=== PATIENT | female | born 1985 | race Caucasian/White ===

== ENCOUNTER 2019-07-07 11:25 | Inpatient (IN) | payer OTHER ==
[2019-07-07 11:54] VITALS: BMI 16.9
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
[2019-07-07] MEDS ORDERED: BISMUTH SUBSALICYLATE 262 MG/15 ML BTL PO PRN (13:42)
[2019-07-07] MEDS ORDERED: cloNIDine HCL 0.1 MG TABLET PO PRN (13:42)
[2019-07-07] MEDS ORDERED: MAG HYDROX/AL HYDROX/SIMETH 30 ML UNIT-DOSE CUP PO PRN (13:42)
[2019-07-07] MEDS ORDERED: MAGNESIUM HYDROX 2400MG/30ML ORAL SUSPENSION 30 ML CUP PO PRN (13:42)
[2019-07-07] MEDS ORDERED: NICOTINE POLACRILEX 4 MG GUM BUC PRN (13:42)
[2019-07-07] MEDS ORDERED: METHOCARBAMOL 500 MG TABLET PO PRN (13:42)
[2019-07-07] MEDS ORDERED: MENTHOL/PHENOL 1 EACH UD MM PRN (13:42)
[2019-07-07] MEDS ORDERED: ACETAMINOPHEN 325 MG TABLET (FP) PO PRN ×2 (13:42)
[2019-07-07] MEDS ORDERED: MAGNESIUM CITRATE 300 ML BOTTLE PO PRN (13:42)
--- NOTE | 2019-07-07 13:57 | PN ---
Teaching Attending Note Name of Resident: Negrito Levy ATTENDING PHYSICIAN STATEMENT I saw and evaluated the patient. I reviewed the resident's note and discussed the case with the resident. I agree with the resident's findings and plan as documented. SUBJECTIVE: Agree with subjective findings of the resident. OBJECTIVE: Agree with objective findings of the resident. ASSESSMENT AND PLAN: Opioid and Alcohol Dependence Agree with moderate librium protocol and methadone protocol for detox.
[2019-07-07] MEDS ORDERED: FLUOCINOLONE ACETONIDE TP SCH (14:00)
[2019-07-07] MEDS ORDERED: CLOBETASOL PROPIONATE TP SCH (14:00)
[2019-07-07] MEDS ORDERED: METHADONE HCL 10 MG TABLET (FOR DETOX USE ONLY) PO ONE (14:45)
[2019-07-07] MEDS: hydrOXYzine PAMOATE 25 MG CAPSULE (FP) PO PRN (16:00)
[2019-07-07] MEDS: TRIAMCINOLONE ACET 0.1% OINT 15 GM TUBE TP SCH (16:01)
[2019-07-07] MEDS ORDERED: AMMONIUM LACTATE 12% LOTION 225 GM BOTTLE TP PRN (17:44)
[2019-07-07 17:53] LABS: HEMATOCRIT 36.3 % (32.4-45.2); HEMOGLOBIN 11.8 GM/dL (10.7-15.3); MCH 29.8 pg (25.7-33.7); MCHC 32.5 g/dl (32.0-36.0); MEAN CELL VOLUME 91.7 fl (80-96); MEAN PLT VOLUME 7.6 fl (7.5-11.1); PLATELET COUNT 419 K/MM3 (134-434); RBC 3.96 M/mm3 (3.60-5.2); RDW 14.7 % (11.6-15.6)
[2019-07-07 18:09] LABS: ALBUMIN 3.5 g/dl (3.4-5.0); BILIRUBIN,TOTAL 0.6 mg/dL (0.2-1); BLOOD UREA NITROGEN 7.5 mg/dL (7-18); CALCIUM 9.1 mg/dL (8.5-10.1); CREATININE 0.9 mg/dL (0.55-1.3); POTASSIUM 4.2 mmol/L (3.5-5.1); TOT PROT 6.7 g/dl (6.4-8.2)
[2019-07-07] MEDS: chlordiazePOXIDE HCL 10 MG CAPSULE PO PRN (18:13)
[2019-07-07] MEDS: COLLOIDAL OATMEAL 1 BAR EACH TP PRN (18:13)
[2019-07-07] MEDS: MELATONIN 5 MG TABLETS PO PRN (22:05)
[2019-07-07] MEDS: THIAMINE HCL 100 MG TABLET (FP) PO SCH (22:05)
[2019-07-07] MEDS: FLUOCINONIDE 0.05% TOPICAL SOLUTION (60 ML BOTTLE) TP SCH (22:07)
[2019-07-07] MEDS: chlordiazePOXIDE HCL 25 MG CAPSULE PO SCH (22:07)
[2019-07-08] MEDS: chlordiazePOXIDE HCL 25 MG CAPSULE PO SCH ×3 (05:30→21:27)
[2019-07-08] MEDS ORDERED: METHADONE HCL 10 MG TABLET (FOR DETOX USE ONLY) ONE (09:22)
[2019-07-08] MEDS ORDERED: METHADONE HCL 5 MG TABLET (FOR DETOX USE ONLY) ONE (09:23)
[2019-07-08] MEDS: TRIAMCINOLONE ACET 0.1% OINT 15 GM TUBE TP SCH (09:45)
[2019-07-08] MEDS: FLUOCINONIDE 0.05% TOPICAL SOLUTION (60 ML BOTTLE) TP SCH (09:46)
[2019-07-08] MEDS: hydrOXYzine PAMOATE 25 MG CAPSULE (FP) PO PRN (09:46)
[2019-07-08] MEDS: PRENATAL VITAMINS W/ FOLIC ACID TABLET (FP) PO SCH (09:46)
[2019-07-08] MEDS ORDERED: METHADONE (DETOX) 20 MG, METHADONE (DETOX) 5 MG PO ONE (10:00)
[2019-07-08] MEDS: IBUPROFEN 400 MG TABLET (FP) PO PRN (10:36)
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
[2019-07-08] MEDS: SELENIUM SULFIDE 2.5% LOTION 4 OZ. TP SCH ×2 (12:47→12:50)
[2019-07-08] MEDS: MINERAL OIL/PETROLAT/WATER TOPICAL CREAM 113 GM JAR TP SCH (12:47)
--- NOTE | 2019-07-08 16:36 | PN ---
S CIWA - CIWA Score Nausea/Vomitin-No Nausea/No Vomiting Muscle Tremors: 4-Moderate,w/Arms Extend Anxiety: 5 Agitation: 3 Paroxysmal Sweats: No Perspiration Orientation: 0-Oriented Tacttile Disturbances: 3-Moderate Itch/Numb/Burn (extensive body psoriatic rash- -itches) Auditory Disturbances: 0-None Visual Disturbances: 0-None Headache: 0-None Present CIWA-Ar Total Score: 15 BHS COWS - Scale Resting Pulse: 0= [place] 80 or Below Sweatin= Chills/Flushing Restless Observation: 0= Sits Still Pupil Size: 0= Normal to Room Light Bone or Joint Aches: 1= Mild Discomfort Runny Nose/ Eye Tearin= None GI Upset > 30mins: 0= None Tremor Observation of Outstretched Hands: 2= Slight Tremor Visible Yawning Observation: 0= None Anxiety or Irritability: 2=Irritable/Anxious Goose Flesh Skin: 0=Smooth Skin COWS Score: 6 S Progress Note (SOAP) Subjective: Pt is a 33 y/o female admitted for opioid and alcohol detox. Pt c/o anxiety, tremor, irritability. Very concerned about her skin rash(Psoriasis)from head to toe and campa when talking about it. Pt is on Floucinonide TP solutionand and Triamcinolol cream TP. Objective: Alert o x 3 Head:Normocephalic, hair with dry scaly patches Skin:extensive thick, red and bumpy patches with silvery scales on lower extremities. 07/08/19 16:36 Vital Signs - 24 hr 07/07/19 07/07/19 07/08/19 17:49 21:35 00:30 Temperature 96.7 F L 97.4 F L Pulse Rate 70 70 Respiratory 18 16 18 Rate Blood Pressure 103/62 117/70 07/08/19 07/08/19 07/08/19 03:30 06:08 09:12 Temperature 97.5 F L 97.1 F L Pulse Rate 61 51 L Respiratory 18 16 18 Rate Blood Pressure 93/61 100/60 07/08/19 13:08 Temperature 96.8 F L Pulse Rate 62 Respiratory 18 Rate Blood Pressure 99/64 Laboratory Tests 07/07/19 07/07/19 07/07/19 14:15 14:15 14:15 WBC 6.0 RBC 3.96 Hgb 11.8 Hct 36.3 MCV 91.7 MCH 29.8 MCHC 32.5 RDW 14.7 Plt Count 419 MPV 7.6 Sodium 142 Potassium 4.2 Chloride 110 H Carbon Dioxide 25 Anion Gap 7 L BUN 7.5 Creatinine 0.9 Est GFR (CKD-EPI)AfAm 96.01 Est GFR (CKD-EPI)NonAf 82.84 Random Glucose 115 H Calcium 9.1 Total Bilirubin 0.6 AST 52 H ALT 70 H Alkaline Phosphatase 60 Total Protein 6.7 Albumin 3.5 RPR Titer Nonreactive Assessment: 07/08/19 16:40 withdrawal sx Hx chronic Psoriasis Plan: continue detox meth/ana taper selsun lotion 2.5% daily as directed eucerine cream daily aveeno soap daily
[2019-07-08] MEDS: THIAMINE HCL 100 MG TABLET (FP) PO SCH (21:27)
[2019-07-08] MEDS: QUEtiapine FUMARATE 50 MG TABLET PO SCH (21:28)
[2019-07-09] MEDS: chlordiazePOXIDE 5 MG CAPSULE PO SCH ×3 (05:25→22:16)
--- NOTE | 2019-07-09 09:39 | EKG ---
Test Reason : Blood Pressure : / mmHG Vent. Rate : 071 BPM Atrial Rate : 071 BPM P-R Int : 128 ms QRS Dur : 096 ms QT Int : 414 ms P-R-T Axes : 054 070 033 degrees QTc Int : 449 ms NORMAL SINUS RHYTHM POSSIBLE LEFT ATRIAL ENLARGEMENT NONSPECIFIC ST AND T WAVE ABNORMALITY ABNORMAL ECG NO PREVIOUS ECGS AVAILABLE Confirmed by CATHI BARKER MD ([id number]) on 07/09/2019 9:39:11 AM Referred By: Confirmed By:CATHI BARKER MD
[2019-07-09] MEDS ORDERED: METHADONE HCL 10 MG TABLET (FOR DETOX USE ONLY) PO ONE (10:00)
--- NOTE | 2019-07-09 10:03 | PN ---
S CIWA - CIWA Score Nausea/Vomitin-No Nausea/No Vomiting Muscle Tremors: 2 Anxiety: 3 Agitation: 4-Moderately Restless Paroxysmal Sweats: 1-Minimal Palms Moist Orientation: 0-Oriented Tacttile Disturbances: 0-None Auditory Disturbances: 0-None Visual Disturbances: 0-None Headache: 0-None Present CIWA-Ar Total Score: 10 S COWS - Scale Resting Pulse: 1= [place] 81-100 Sweatin= Chills/Flushing Restless Observation: 0= Sits Still Pupil Size: 0= Normal to Room Light Bone or Joint Aches: 1= Mild Discomfort Runny Nose/ Eye Tearin= Nasal Congestion GI Upset > 30mins: 1= Stomach Cramp Tremor Observation of Outstretched Hands: 1= Tremor [place], Not Seen Yawning Observation: 0= None Anxiety or Irritability: 1=Feels Anxious/Irritable Goose Flesh Skin: 0=Smooth Skin COWS Score: 7 S Progress Note (SOAP) Subjective: 33 years old female first patient [facility] admission was admitted on 07/07/19 for alcohol and opiate withdrawal sx management doing well with librium and methadone detox regimen resting on bed comfortably Objective: 07/09/19 10:04 Vital Signs Temperature 97.0 F L 07/09/19 09:43 Pulse Rate 84 07/09/19 09:43 Respiratory Rate 18 07/09/19 09:43 Blood Pressure 130/78 07/09/19 09:43 O2 Sat by Pulse Oximetry (%) Laboratory Last Values WBC 6.0 K/mm3 (4.0-10.0) 07/07/19 14:15 RBC 3.96 M/mm3 (3.60-5.2) 07/07/19 14:15 Hgb 11.8 GM/dL (10.7-15.3) 07/07/19 14:15 Hct 36.3 % (32.4-45.2) 07/07/19 14:15 MCV 91.7 fl (80-96) 07/07/19 14:15 MCH 29.8 pg (25.7-33.7) 07/07/19 14:15 MCHC 32.5 g/dl (32.0-36.0) 07/07/19 14:15 RDW 14.7 % (11.6-15.6) 07/07/19 14:15 Plt Count 419 K/MM3 (134-434) 07/07/19 14:15 MPV 7.6 fl (7.5-11.1) 07/07/19 14:15 Sodium 142 mmol/L (136-145) 07/07/19 14:15 Potassium 4.2 mmol/L (3.5-5.1) 07/07/19 14:15 Chloride 110 mmol/L (98-107) H 07/07/19 14:15 Carbon Dioxide 25 mmol/L (21-32) 07/07/19 14:15 Anion Gap 7 MMOL/L (8-16) L 07/07/19 14:15 BUN 7.5 mg/dL (7-18) 07/07/19 14:15 Creatinine 0.9 mg/dL (0.55-1.3) 07/07/19 14:15 Est GFR (CKD-EPI)AfAm 96.01 07/07/19 14:15 Est GFR (CKD-EPI)NonAf 82.84 07/07/19 14:15 Random Glucose 115 mg/dL (74-106) H 07/07/19 14:15 Calcium 9.1 mg/dL (8.5-10.1) 07/07/19 14:15 Total Bilirubin 0.6 mg/dL (0.2-1) 07/07/19 14:15 AST 52 U/L (15-37) H 07/07/19 14:15 ALT 70 U/L (13-61) H 07/07/19 14:15 Alkaline Phosphatase 60 U/L (45-117) 07/07/19 14:15 Total Protein 6.7 g/dl (6.4-8.2) 07/07/19 14:15 Albumin 3.5 g/dl (3.4-5.0) 07/07/19 14:15 RPR Titer Nonreactive (NONREACTIVE) 07/07/19 14:15 lab noted Assessment: 07/09/19 10:05 alcohol and opiate withdrawal sx alert speech clearly denies dizziness breath ease and even Plan: continue librum and methadone detox regimen
[2019-07-09] MEDS: MINERAL OIL/PETROLAT/WATER TOPICAL CREAM 113 GM JAR TP SCH (10:27)
[2019-07-09] MEDS: PRENATAL VITAMINS W/ FOLIC ACID TABLET (FP) PO SCH (10:27)
[2019-07-09] MEDS: TRIAMCINOLONE ACET 0.1% OINT 15 GM TUBE TP SCH (10:28)
[2019-07-09] MEDS: SELENIUM SULFIDE 2.5% LOTION 4 OZ. TP SCH (10:28)
[2019-07-09] MEDS: FLUOCINONIDE 0.05% TOPICAL SOLUTION (60 ML BOTTLE) TP SCH (10:29)
[2019-07-09] MEDS: IBUPROFEN 400 MG TABLET (FP) PO PRN ×2 (10:42→22:19)
[2019-07-09] MEDS: chlordiazePOXIDE HCL 10 MG CAPSULE PO PRN (18:06)
[2019-07-09] MEDS: QUEtiapine FUMARATE 50 MG TABLET PO SCH (22:16)
[2019-07-09] MEDS: THIAMINE HCL 100 MG TABLET (FP) PO SCH (22:16)
[2019-07-09] MEDS: MELATONIN 5 MG TABLETS PO PRN (22:16)
[2019-07-10] MEDS ORDERED: chlordiazePOXIDE HCL 10 MG CAPSULE PO PRN
[2019-07-10] MEDS: chlordiazePOXIDE HCL 10 MG CAPSULE PO SCH ×3 (06:08→21:48)
[2019-07-10] MEDS ORDERED: METHADONE HCL 10 MG TABLET (FOR DETOX USE ONLY) ONE (08:20)
[2019-07-10] MEDS ORDERED: METHADONE HCL 5 MG TABLET (FOR DETOX USE ONLY) ONE (08:20)
--- NOTE | 2019-07-10 09:20 | PN ---
[facility] CIWA - CIWA Score Nausea/Vomitin-No Nausea/No Vomiting Muscle Tremors: 2 Anxiety: 2 Agitation: 2 Paroxysmal Sweats: No Perspiration Orientation: 0-Oriented Tacttile Disturbances: 0-None Auditory Disturbances: 0-None Visual Disturbances: 0-None Headache: 0-None Present CIWA-Ar Total Score: 6 BHS COWS - Scale Resting Pulse: 0= [place] 80 or Below Sweatin= Chills/Flushing Restless Observation: 0= Sits Still Pupil Size: 0= Normal to Room Light Bone or Joint Aches: 1= Mild Discomfort Runny Nose/ Eye Tearin= None GI Upset > 30mins: 1= Stomach Cramp Tremor Observation of Outstretched Hands: 2= Slight Tremor Visible Yawning Observation: 0= None Anxiety or Irritability: 1=Feels Anxious/Irritable Goose Flesh Skin: 0=Smooth Skin COWS Score: 6 S Progress Note (SOAP) Subjective: doing well with librium and methadone detox regimen resting on bed comfortably hesitate to discuss aftercare with staff Objective: 07/10/19 09:23 Vital Signs Temperature 97.9 F 07/10/19 09:18 Pulse Rate 74 07/10/19 09:18 Respiratory Rate 18 07/10/19 09:18 Blood Pressure 106/69 07/10/19 09:18 O2 Sat by Pulse Oximetry (%) Laboratory Last Values WBC 6.0 K/mm3 (4.0-10.0) 07/07/19 14:15 RBC 3.96 M/mm3 (3.60-5.2) 07/07/19 14:15 Hgb 11.8 GM/dL (10.7-15.3) 07/07/19 14:15 Hct 36.3 % (32.4-45.2) 07/07/19 14:15 MCV 91.7 fl (80-96) 07/07/19 14:15 MCH 29.8 pg (25.7-33.7) 07/07/19 14:15 MCHC 32.5 g/dl (32.0-36.0) 07/07/19 14:15 RDW 14.7 % (11.6-15.6) 07/07/19 14:15 Plt Count 419 K/MM3 (134-434) 07/07/19 14:15 MPV 7.6 fl (7.5-11.1) 07/07/19 14:15 Sodium 142 mmol/L (136-145) 07/07/19 14:15 Potassium 4.2 mmol/L (3.5-5.1) 07/07/19 14:15 Chloride 110 mmol/L (98-107) H 07/07/19 14:15 Carbon Dioxide 25 mmol/L (21-32) 07/07/19 14:15 Anion Gap 7 MMOL/L (8-16) L 07/07/19 14:15 BUN 7.5 mg/dL (7-18) 07/07/19 14:15 Creatinine 0.9 mg/dL (0.55-1.3) 07/07/19 14:15 Est GFR (CKD-EPI)AfAm 96.01 07/07/19 14:15 Est GFR (CKD-EPI)NonAf 82.84 07/07/19 14:15 Random Glucose 115 mg/dL (74-106) H 07/07/19 14:15 Calcium 9.1 mg/dL (8.5-10.1) 07/07/19 14:15 Total Bilirubin 0.6 mg/dL (0.2-1) 07/07/19 14:15 AST 52 U/L (15-37) H 07/07/19 14:15 ALT 70 U/L (13-61) H 07/07/19 14:15 Alkaline Phosphatase 60 U/L (45-117) 07/07/19 14:15 Total Protein 6.7 g/dl (6.4-8.2) 07/07/19 14:15 Albumin 3.5 g/dl (3.4-5.0) 07/07/19 14:15 RPR Titer Nonreactive (NONREACTIVE) 07/07/19 14:15 lab noted discuss alcohol related liver enzyme elevation Assessment: 07/10/19 09:23 alcohol and opiate withdrawal sx alert ambulating from bed to bathroom steady gait skin warm moist able to shower yesterday and will do today Plan: continue librum and opiate detox regimen
[2019-07-10] MEDS: TRIAMCINOLONE ACET 0.1% OINT 15 GM TUBE TP SCH (09:34)
[2019-07-10] MEDS: SELENIUM SULFIDE 2.5% LOTION 4 OZ. TP SCH (09:34)
[2019-07-10] MEDS: MINERAL OIL/PETROLAT/WATER TOPICAL CREAM 113 GM JAR TP SCH (09:34)
[2019-07-10] MEDS: PRENATAL VITAMINS W/ FOLIC ACID TABLET (FP) PO SCH (09:35)
[2019-07-10] MEDS ORDERED: METHADONE (DETOX) 10 MG, METHADONE (DETOX) 5 MG PO ONE (10:00)
[2019-07-10] MEDS: FLUOCINONIDE 0.05% TOPICAL SOLUTION (60 ML BOTTLE) TP SCH (11:09)
[2019-07-10] MEDS: COLLOIDAL OATMEAL 1 BAR EACH TP PRN (14:14)
[2019-07-10] MEDS: hydrOXYzine PAMOATE 25 MG CAPSULE (FP) PO PRN (16:51)
[2019-07-10] MEDS: IBUPROFEN 400 MG TABLET (FP) PO PRN (19:25)
[2019-07-10] MEDS: THIAMINE HCL 100 MG TABLET (FP) PO SCH (21:48)
[2019-07-10] MEDS: MELATONIN 5 MG TABLETS PO PRN (21:48)
[2019-07-10] MEDS: QUEtiapine FUMARATE 50 MG TABLET PO SCH (21:48)
[2019-07-11] MEDS ORDERED: chlordiazePOXIDE HCL 10 MG CAPSULE PO ONE (05:00)
[2019-07-11] MEDS: IBUPROFEN 400 MG TABLET (FP) PO PRN ×3 (05:49→22:57)
[2019-07-11] MEDS: PRENATAL VITAMINS W/ FOLIC ACID TABLET (FP) PO SCH (09:59)
[2019-07-11] MEDS: SELENIUM SULFIDE 2.5% LOTION 4 OZ. TP SCH (10:00)
[2019-07-11] MEDS: MINERAL OIL/PETROLAT/WATER TOPICAL CREAM 113 GM JAR TP SCH (10:00)
[2019-07-11] MEDS ORDERED: METHADONE HCL 10 MG TABLET (FOR DETOX USE ONLY) PO ONE (10:00)
[2019-07-11] MEDS: TRIAMCINOLONE ACET 0.1% OINT 15 GM TUBE TP SCH (10:02)
[2019-07-11] MEDS: FLUOCINONIDE 0.05% TOPICAL SOLUTION (60 ML BOTTLE) TP SCH (10:02)
--- NOTE | 2019-07-11 10:21 | PN ---
[facility] CIWA - CIWA Score Nausea/Vomitin-No Nausea/No Vomiting Muscle Tremors: 1-None Visible, but [place] Anxiety: 1-Mildly Anxious Agitation: 0-Normal Activity Paroxysmal Sweats: 1-Minimal Palms Moist Orientation: 0-Oriented Tacttile Disturbances: 0-None Auditory Disturbances: 0-None Visual Disturbances: 0-None Headache: 0-None Present CIWA-Ar Total Score: 3 S COWS - Scale Resting Pulse: 0= [place] 80 or Below Sweatin= Chills/Flushing Restless Observation: 0= Sits Still Pupil Size: 0= Normal to Room Light Bone or Joint Aches: 0= None Runny Nose/ Eye Tearin= None GI Upset > 30mins: 0= None Tremor Observation of Outstretched Hands: 1= Tremor [place], Not Seen Yawning Observation: 1= 1-2x During Session Anxiety or Irritability: 0= None Goose Flesh Skin: 0=Smooth Skin COWS Score: 3 S Progress Note (SOAP) Subjective: doing well with librum and methadone detox regimen resting on bed comfortably tolerate food and fluid well sleep better at night discuss network operations lead in the community to maintain sobriety Objective: 07/11/19 10:22 Vital Signs Temperature 98.0 F 07/11/19 09:08 Pulse Rate 62 07/11/19 09:08 Respiratory Rate 18 07/11/19 09:08 Blood Pressure 98/53 L 07/11/19 09:08 O2 Sat by Pulse Oximetry (%) Laboratory Last Values WBC 6.0 K/mm3 (4.0-10.0) 07/07/19 14:15 RBC 3.96 M/mm3 (3.60-5.2) 07/07/19 14:15 Hgb 11.8 GM/dL (10.7-15.3) 07/07/19 14:15 Hct 36.3 % (32.4-45.2) 07/07/19 14:15 MCV 91.7 fl (80-96) 07/07/19 14:15 MCH 29.8 pg (25.7-33.7) 07/07/19 14:15 MCHC 32.5 g/dl (32.0-36.0) 07/07/19 14:15 RDW 14.7 % (11.6-15.6) 07/07/19 14:15 Plt Count 419 K/MM3 (134-434) 07/07/19 14:15 MPV 7.6 fl (7.5-11.1) 07/07/19 14:15 Sodium 142 mmol/L (136-145) 07/07/19 14:15 Potassium 4.2 mmol/L (3.5-5.1) 07/07/19 14:15 Chloride 110 mmol/L (98-107) H 07/07/19 14:15 Carbon Dioxide 25 mmol/L (21-32) 07/07/19 14:15 Anion Gap 7 MMOL/L (8-16) L 07/07/19 14:15 BUN 7.5 mg/dL (7-18) 07/07/19 14:15 Creatinine 0.9 mg/dL (0.55-1.3) 07/07/19 14:15 Est GFR (CKD-EPI)AfAm 96.01 07/07/19 14:15 Est GFR (CKD-EPI)NonAf 82.84 07/07/19 14:15 Random Glucose 115 mg/dL (74-106) H 07/07/19 14:15 Calcium 9.1 mg/dL (8.5-10.1) 07/07/19 14:15 Total Bilirubin 0.6 mg/dL (0.2-1) 07/07/19 14:15 AST 52 U/L (15-37) H 07/07/19 14:15 ALT 70 U/L (13-61) H 07/07/19 14:15 Alkaline Phosphatase 60 U/L (45-117) 07/07/19 14:15 Total Protein 6.7 g/dl (6.4-8.2) 07/07/19 14:15 Albumin 3.5 g/dl (3.4-5.0) 07/07/19 14:15 RPR Titer Nonreactive (NONREACTIVE) 07/07/19 14:15 lab noted Assessment: 07/11/19 10:22 alcohol and opiate withdrawal sx alert oriented x 3 speech clearly no nausea no vomiting Plan: continue libirum and methadone detox regimen
[2019-07-11] MEDS: hydrOXYzine PAMOATE 25 MG CAPSULE (FP) PO PRN ×2 (15:18→22:06)
[2019-07-11] MEDS: QUEtiapine FUMARATE 50 MG TABLET PO SCH (22:06)
[2019-07-11] MEDS: THIAMINE HCL 100 MG TABLET (FP) PO SCH (22:06)
[2019-07-12] MEDS ORDERED: METHADONE HCL 5 MG TABLET (FOR DETOX USE ONLY) PO ONE (06:00)
[2019-07-12 09:18] VITALS: BP 116/65; PULSE 71; TEMP 98.6
[2019-07-12] MEDS: MINERAL OIL/PETROLAT/WATER TOPICAL CREAM 113 GM JAR TP SCH (10:48)
[2019-07-12] MEDS: PRENATAL VITAMINS W/ FOLIC ACID TABLET (FP) PO SCH (10:48)
[2019-07-12] MEDS: TRIAMCINOLONE ACET 0.1% OINT 15 GM TUBE TP SCH (10:48)
[2019-07-12] MEDS: FLUOCINONIDE 0.05% TOPICAL SOLUTION (60 ML BOTTLE) TP SCH (10:48)
[2019-07-12] MEDS: SELENIUM SULFIDE 2.5% LOTION 4 OZ. TP SCH (10:49)
[2019-07-12] MEDS: hydrOXYzine PAMOATE 25 MG CAPSULE (FP) PO PRN (10:50)
[2019-07-12] MEDS: IBUPROFEN 400 MG TABLET (FP) PO PRN (11:20)
--- NOTE | 2019-07-12 15:40 | DS ---
[facility] Detox Discharge Summary Admission Date: 07/07/19 Discharge Date: 07/12/19 - History Present History: Alcohol Dependence, Opioid Dependence Additional Comments: 33 years old female admitted on 07/07/19 for alcohol and opiate withdrawal sx managemetn doing well wtih libbrium and methadone detox regimen no complication throughout the detox stay seen by psychiatrist begin seroquel 50 mg po hs tolerate well - Physical Exam Results Vital Signs: Vital Signs Temperature 98.6 F 07/12/19 09:18 Pulse Rate 71 07/12/19 09:18 Respiratory Rate 18 07/12/19 09:18 Blood Pressure 116/65 07/12/19 09:18 O2 Sat by Pulse Oximetry (%) Pertinent Admission Physical Exam Findings: alcohol and opiate withdrawal sx Laboratory Last Values WBC 6.0 K/mm3 (4.0-10.0) 07/07/19 14:15 RBC 3.96 M/mm3 (3.60-5.2) 07/07/19 14:15 Hgb 11.8 GM/dL (10.7-15.3) 07/07/19 14:15 Hct 36.3 % (32.4-45.2) 07/07/19 14:15 MCV 91.7 fl (80-96) 07/07/19 14:15 MCH 29.8 pg (25.7-33.7) 07/07/19 14:15 MCHC 32.5 g/dl (32.0-36.0) 07/07/19 14:15 RDW 14.7 % (11.6-15.6) 07/07/19 14:15 Plt Count 419 K/MM3 (134-434) 07/07/19 14:15 MPV 7.6 fl (7.5-11.1) 07/07/19 14:15 Sodium 142 mmol/L (136-145) 07/07/19 14:15 Potassium 4.2 mmol/L (3.5-5.1) 07/07/19 14:15 Chloride 110 mmol/L (98-107) H 07/07/19 14:15 Carbon Dioxide 25 mmol/L (21-32) 07/07/19 14:15 Anion Gap 7 MMOL/L (8-16) L 07/07/19 14:15 BUN 7.5 mg/dL (7-18) 07/07/19 14:15 Creatinine 0.9 mg/dL (0.55-1.3) 07/07/19 14:15 Est GFR (CKD-EPI)AfAm 96.01 07/07/19 14:15 Est GFR (CKD-EPI)NonAf 82.84 07/07/19 14:15 Random Glucose 115 mg/dL (74-106) H 07/07/19 14:15 Calcium 9.1 mg/dL (8.5-10.1) 07/07/19 14:15 Total Bilirubin 0.6 mg/dL (0.2-1) 07/07/19 14:15 AST 52 U/L (15-37) H 07/07/19 14:15 ALT 70 U/L (13-61) H 07/07/19 14:15 Alkaline Phosphatase 60 U/L (45-117) 07/07/19 14:15 Total Protein 6.7 g/dl (6.4-8.2) 07/07/19 14:15 Albumin 3.5 g/dl (3.4-5.0) 07/07/19 14:15 RPR Titer Nonreactive (NONREACTIVE) 07/07/19 14:15 TB (QFT) Incubation (.) 07/07/19 14:15 TB Test (QFT) Nil 0.02 IU/mL (.) 07/07/19 14:15 TB Test (QFT) Mitogen >10.00 IU/mL (.) 07/07/19 14:15 TB Test (QFT) Antigen 0.02 IU/mL (.) 07/07/19 14:15 TB Test (QFT) Negative (Negative) 07/07/19 14:15 TB Positive Criteria (.) 07/07/19 14:15 lab noted - Treatment Hospital Course: Detox Protocol Followed, Detoxed Safely, Responded well, Discharged Condition Good, Rehab Referral Accepted Patient has Accepted a Rehab Referral to: [facility] - Medication Discharge Medications: Ambulatory Orders Clobetasol Propionate [Cormax] 50 ml TP DAILY 07/07/19 Fluocinolone Acetonide [Jozeb-Uxytjab-Tq] 118.28 ml TP DAILY 07/07/19 Triamcinolone 0.1% Ointment [Aristocort 0.1% Ointment -] 1 applic TP DAILY 07/07 - Diagnosis (1) Alcohol use disorder Status: Acute (2) Nicotine dependence Status: Acute Qualifiers: Nicotine product type: cigarettes Substance use status: in withdrawal Qualified Code(s): F17.213 - Nicotine dependence, cigarettes, with withdrawal (3) Opioid use disorder Status: Acute (4) Substance induced mood disorder Status: Suspected - AMA Did Patient Leave Against Medical Advice: No CIWA Score - CIWA Score Nausea/Vomitin-No Nausea/No Vomiting Muscle Tremors: 1-None Visible, but Humble Anxiety: 0-No Anxiety, at Ease Agitation: 0-Normal Activity Paroxysmal Sweats: No Perspiration Orientation: 0-Oriented Tacttile Disturbances: 0-None Auditory Disturbances: 0-None Visual Disturbances: 0-None Headache: 0-None Present CIWA-Ar Total Score: 1 COWS (PN) - Opiate Withdrawal Resting Pulse: 0= [place] 80 or Below Sweatin= No chills or Flushing Restless Observation: 0= Sits Still Pupil Size: 0= Normal to Room Light Bone or Joint Aches: 0= None Runny Nose/ Eye Tearin= None GI Upset > 30mins: 0= None Tremor Observation of Outstretched Hands: 1= Tremor Humble, Not Seen Yawning Observation: 0= None Anxiety or Irritability: 0= None Goose Flesh Skin: 0=Smooth Skin COWS Score: 1
== END 2019-07-12 13:10 | disposition other institution (70) | DRG 773 ==
LOC: YASAS 11:25 → Y3N 14:12
PROVIDERS: ADMIT Surgery; ATTEND Surgery
PROC: HZ2ZZZZ Detoxification Services for Substance Abuse Treatment (ICD-10-PCS; principal; 2019-07-07)
DX: F10.230 Alcohol dependence with withdrawal, uncomplicated (principal); F11.23 Opioid dependence with withdrawal; F14.20 Cocaine dependence, uncomplicated; F12.20 Cannabis dependence, uncomplicated; F17.213 Nicotine dependence, cigarettes, with withdrawal; F19.24 Other psychoactive substance dependence with psychoactive substance-induced mood disorder; L40.9 Psoriasis, unspecified; G47.00 Insomnia, unspecified; B18.2 Chronic viral hepatitis C; Z86.59 Personal history of other mental and behavioral disorders; Z91.19 Patient's noncompliance with other medical treatment and regimen
CPT/HCPCS: 36415; 80053; 85027; 86480; 86593; 93005; 93010

== ENCOUNTER 2019-07-12 13:26 | Inpatient (IN) | payer OTHER ==
[2019-07-12] MEDS ORDERED: MAGNESIUM CITRATE 300 ML BOTTLE PO PRN (17:53)
[2019-07-12] MEDS ORDERED: MAGNESIUM HYDROX 2400MG/30ML ORAL SUSPENSION 30 ML CUP PO PRN (17:53)
[2019-07-12] MEDS ORDERED: guaiFENesin 200 MG/10 ML 10 ML UNIT-DOSE CUPS PO PRN (17:53)
[2019-07-12] MEDS ORDERED: ACETAMINOPHEN 325 MG TABLET (FP) PO PRN (17:53)
[2019-07-12] MEDS ORDERED: LOPERAMIDE HCL 2 MG CAPSULE PO PRN (17:53)
[2019-07-12] MEDS ORDERED: MENTHOL/PHENOL 1 EACH UD MM PRN (17:53)
[2019-07-12] MEDS ORDERED: MAG HYDROX/AL HYDROX/SIMETH 30 ML UNIT-DOSE CUP PO PRN (17:53)
[2019-07-12] MEDS ORDERED: P-EPHED 60MG/TRIPROLIDI 2.5MG TABLET PO PRN (17:53)
[2019-07-12] MEDS: hydrOXYzine PAMOATE 25 MG CAPSULE (FP) PO PRN (19:03)
[2019-07-12] MEDS: MELATONIN 5 MG TABLETS PO PRN (21:28)
[2019-07-12] MEDS: THIAMINE HCL 100 MG TABLET (FP) PO SCH (21:28)
[2019-07-13] MEDS: hydrOXYzine PAMOATE 25 MG CAPSULE (FP) PO PRN ×3 (07:55→20:14)
[2019-07-13] MEDS ORDERED: CLOBETASOL PROPIONATE TP SCH (10:00)
[2019-07-13] MEDS: TRIAMCINOLONE ACET 0.1% OINT 15 GM TUBE TP SCH (10:05)
[2019-07-13] MEDS: PRENATAL VITAMINS W/ FOLIC ACID TABLET (FP) PO SCH (10:05)
[2019-07-13] MEDS: FLUOCINONIDE 0.05% TOPICAL SOLUTION (60 ML BOTTLE) TP SCH (10:05)
[2019-07-13] MEDS ORDERED: PNEUMOC 13-VAL CONJ-DIP CRM/PF 0.5 ML DISP.SYRIN IM ONE (10:56)
[2019-07-13] MEDS ORDERED: PNEUMOCOCCAL 23 VACCINE 0.5 ML VIAL IM ONE (12:00)
[2019-07-13] MEDS: SELENIUM SULFIDE 2.5% LOTION 4 OZ. TP SCH (12:18)
[2019-07-13] MEDS: COLLOIDAL OATMEAL 1 BAR EACH TP PRN (12:19)
[2019-07-13] MEDS: IBUPROFEN 400 MG TABLET (FP) PO PRN ×2 (12:24→20:11)
[2019-07-13] MEDS ORDERED: BENZOCAINE 20 % GEL TUBE MM PRN (14:25)
[2019-07-13] MEDS: THIAMINE HCL 100 MG TABLET (FP) PO SCH (21:24)
[2019-07-13] MEDS: MELATONIN 5 MG TABLETS PO PRN (21:24)
[2019-07-14] MEDS: hydrOXYzine PAMOATE 25 MG CAPSULE (FP) PO PRN (07:32)
[2019-07-14] MEDS ORDERED: ASPIRIN COATED 81 MG TABLET.EC ONE (08:48)
[2019-07-14] MEDS ORDERED: PT OWN MED DRAWER 7, Y5N ONE (08:51)
[2019-07-14] MEDS: PRENATAL VITAMINS W/ FOLIC ACID TABLET (FP) PO SCH (09:42)
[2019-07-14] MEDS: ASPIRIN COATED 81 MG TABLET.EC PO SCH (09:42)
[2019-07-14] MEDS: AMMONIUM LACTATE 12% LOTION 225 GM BOTTLE TP PRN (09:43)
[2019-07-14] MEDS: TRIAMCINOLONE ACET 0.1% OINT 15 GM TUBE TP SCH (09:43)
[2019-07-14] MEDS: SELENIUM SULFIDE 2.5% LOTION 4 OZ. TP SCH (09:43)
[2019-07-14] MEDS: FLUOCINONIDE 0.05% TOPICAL SOLUTION (60 ML BOTTLE) TP SCH (09:43)
[2019-07-14] MEDS: IBUPROFEN 400 MG TABLET (FP) PO PRN (11:21)
[2019-07-14] MEDS ORDERED: BUPRENORPHINE/NALOXONE 2 MG/0.5 MG FILM PACKET SL ONE ×2 (11:32→18:00)
--- NOTE | 2019-07-14 11:54 | PN ---
[facility] COWS - Scale Resting Pulse: 0= [place] 80 or Below Sweatin= Chills/Flushing Restless Observation: 1= Difficult to Sit Still Pupil Size: 1= Pupils >than Normal Bone or Joint Aches: 2= Severe Diffuse Aches Runny Nose/ Eye Tearin= None GI Upset > 30mins: 1= Stomach Cramp Tremor Observation of Outstretched Hands: 2= Slight Tremor Visible Yawning Observation: 0= None Anxiety or Irritability: 2=Irritable/Anxious Goose Flesh Skin: 0=Smooth Skin COWS Score: 10 BHS Progress Note (SOAP) Subjective: Patient seen for withdrawal symptoms. Patient has long standing hx of Heroin/ Cocaine IVDA and ETOH dependence. Patient reports using 1 bundle of heroin daily. Completed detox 07/12/19 and now requesting suboxone. Patient denies hx of suboxone/MTD maintenance. ROS + stomach cramps, anxiety, restlessness, sweating and chills PE: alert and oriented x 3, thin skin warm, + facial moisture, + goose flesh pupils mildly dilated, +perrla, eoms intact bl neck supple, no jvd ext no edema, + tremors, full rom anxious and restless + Objective: 07/14/19 11:54 PE: alert and oriented x 3, thin skin warm, + facial moisture, + goose flesh pupils mildly dilated, +perrla, eoms intact bl neck supple, no jvd ext no edema, + tremors, full rom anxious and restless Istop negative Assessment: 07/14/19 11:54 suboxone mat opiod use disorder Plan: will start suboxone 2mg now, then repeat at 6pm increase to 4mg bid tomorrow patient connected to program [facility] for aftercare encourage oral fluids conitnue to monitor clinically
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
[2019-07-14] MEDS: QUEtiapine FUMARATE 50 MG TABLET PO SCH (21:16)
[2019-07-14] MEDS: THIAMINE HCL 100 MG TABLET (FP) PO SCH (21:16)
[2019-07-14] MEDS: hydrOXYzine PAMOATE 50 MG CAPSULE (FP) PO PRN (22:50)
[2019-07-15] MEDS: IBUPROFEN 400 MG TABLET (FP) PO PRN ×2 (01:04→11:15)
[2019-07-15] MEDS: hydrOXYzine PAMOATE 50 MG CAPSULE (FP) PO PRN ×4 (05:00→23:42)
[2019-07-15] MEDS: ASPIRIN COATED 81 MG TABLET.EC PO SCH (09:02)
[2019-07-15] MEDS: SERTRALINE HCL 50 MG TABLET (FP) PO SCH (09:02)
[2019-07-15] MEDS: BUPRENORPHINE/NALOXONE 4 MG/1 MG FILM PACKET SL SCH ×2 (09:03→21:25)
[2019-07-15] MEDS: NICOTINE 14 MG/24 HOURS TOPICAL PATCH TD SCH (09:03)
[2019-07-15] MEDS: PRENATAL VITAMINS W/ FOLIC ACID TABLET (FP) PO SCH (09:03)
[2019-07-15] MEDS: SELENIUM SULFIDE 2.5% LOTION 4 OZ. TP SCH (09:05)
[2019-07-15] MEDS: FLUOCINONIDE 0.05% TOPICAL SOLUTION (60 ML BOTTLE) TP SCH (09:06)
[2019-07-15] MEDS: TRIAMCINOLONE ACET 0.1% OINT 15 GM TUBE TP SCH (13:04)
[2019-07-15] MEDS: QUEtiapine FUMARATE 50 MG TABLET PO SCH (21:25)
[2019-07-15] MEDS: THIAMINE HCL 100 MG TABLET (FP) PO SCH (21:25)
[2019-07-16] MEDS: PRENATAL VITAMINS W/ FOLIC ACID TABLET (FP) PO SCH (09:19)
[2019-07-16] MEDS: SERTRALINE HCL 50 MG TABLET (FP) PO SCH (09:19)
[2019-07-16] MEDS: FLUOCINONIDE 0.05% TOPICAL SOLUTION (60 ML BOTTLE) TP SCH (09:19)
[2019-07-16] MEDS: BUPRENORPHINE/NALOXONE 4 MG/1 MG FILM PACKET SL SCH ×2 (09:19→21:08)
[2019-07-16] MEDS: ASPIRIN COATED 81 MG TABLET.EC PO SCH (09:19)
[2019-07-16] MEDS: TRIAMCINOLONE ACET 0.1% OINT 15 GM TUBE TP SCH (09:19)
[2019-07-16] MEDS: SELENIUM SULFIDE 2.5% LOTION 4 OZ. TP SCH (09:19)
[2019-07-16] MEDS: hydrOXYzine PAMOATE 50 MG CAPSULE (FP) PO PRN ×2 (09:21→18:14)
[2019-07-16] MEDS: NICOTINE 14 MG/24 HOURS TOPICAL PATCH TD SCH (09:42)
[2019-07-16] MEDS: NICOTINE POLACRILEX 2 MG GUM BUC PRN (13:50)
[2019-07-16] MEDS: IBUPROFEN 400 MG TABLET (FP) PO PRN (13:50)
[2019-07-16] MEDS: QUEtiapine FUMARATE 50 MG TABLET PO SCH (21:08)
[2019-07-16] MEDS: THIAMINE HCL 100 MG TABLET (FP) PO SCH (21:08)
[2019-07-17] MEDS: hydrOXYzine PAMOATE 50 MG CAPSULE (FP) PO PRN ×4 (00:31→21:06)
[2019-07-17] MEDS: SERTRALINE HCL 50 MG TABLET (FP) PO SCH (09:39)
[2019-07-17] MEDS: NICOTINE 14 MG/24 HOURS TOPICAL PATCH TD SCH (09:39)
[2019-07-17] MEDS: ASPIRIN COATED 81 MG TABLET.EC PO SCH (09:39)
[2019-07-17] MEDS: PRENATAL VITAMINS W/ FOLIC ACID TABLET (FP) PO SCH (09:39)
[2019-07-17] MEDS: TRIAMCINOLONE ACET 0.1% OINT 15 GM TUBE TP SCH ×2 (09:43→21:03)
[2019-07-17] MEDS: FLUOCINONIDE 0.05% TOPICAL SOLUTION (60 ML BOTTLE) TP SCH ×3 (09:44→21:05)
[2019-07-17] MEDS: BUPRENORPHINE HCL/NALOXONE 12 MG-3 MG SL FILM PACKET SL SCH (10:17)
[2019-07-17] MEDS: SELENIUM SULFIDE 2.5% LOTION 4 OZ. TP SCH (10:49)
--- NOTE | 2019-07-17 11:16 | PN ---
[facility] COWS - Scale Resting Pulse: 0= [place] 80 or Below Sweatin= Chills/Flushing Restless Observation: 0= Sits Still Pupil Size: 0= Normal to Room Light Bone or Joint Aches: 2= Severe Diffuse Aches Runny Nose/ Eye Tearin= None GI Upset > 30mins: 1= Stomach Cramp Tremor Observation of Outstretched Hands: 1= Tremor [place], Not Seen Yawning Observation: 0= None Anxiety or Irritability: 2=Irritable/Anxious Goose Flesh Skin: 0=Smooth Skin COWS Score: 7 BHS Progress Note (SOAP) Subjective: Patient states feeling somewhat better but still has opiod cravings, anxiety, night sweats and body aches. Objective: 07/17/19 11:13 PE alert and oriented x 3 skin + diffuse, psoriatic rash on arms and torso +perrla, eoms intact bl car s1s2 resp cta bl gi nt, nd ext full rom, mild tremors felt Assessment: 07/17/19 11:14 psoriasis suboxone mat opiod use disorder Plan: will increase suboxone to 12mg sl daily change fluicinolone cream to bid psych consult for anxiety continue supportive measures and group meetings monitor clinically
[2019-07-17] MEDS: THIAMINE HCL 100 MG TABLET (FP) PO SCH (21:03)
[2019-07-17] MEDS: QUEtiapine FUMARATE 50 MG TABLET PO SCH (21:05)
[2019-07-17] MEDS: MELATONIN 5 MG TABLETS PO PRN (21:06)
[2019-07-17] MEDS: IBUPROFEN 400 MG TABLET (FP) PO PRN (22:54)
[2019-07-18] MEDS: PRENATAL VITAMINS W/ FOLIC ACID TABLET (FP) PO SCH (10:13)
[2019-07-18] MEDS: BUPRENORPHINE HCL/NALOXONE 12 MG-3 MG SL FILM PACKET SL SCH (10:14)
[2019-07-18] MEDS: NICOTINE 14 MG/24 HOURS TOPICAL PATCH TD SCH (10:14)
[2019-07-18] MEDS: SELENIUM SULFIDE 2.5% LOTION 4 OZ. TP SCH (10:14)
[2019-07-18] MEDS: hydrOXYzine PAMOATE 50 MG CAPSULE (FP) PO PRN (10:14)
[2019-07-18] MEDS: SERTRALINE HCL 50 MG TABLET (FP) PO SCH (10:14)
[2019-07-18] MEDS: ASPIRIN COATED 81 MG TABLET.EC PO SCH (10:14)
--- NOTE | 2019-07-18 10:14 | PN ---
Psychiatric Progress Note Vital Signs: Vital Signs Period Temp Pulse Resp BP Sys/Morales Pulse Ox Last 24 Hr 98 F 71 18-18 122/63 Date of Session: 07/18/19 Chief Complaint:: " I can't sleep and i still have anxiety." HPI: Patient admitted to [facility] for alcohol, marijuana, cocaine, and opiate dependence. Patient currently c/o insomnia and anxiety. ROS: Patient is coherent, alert + Oriented x3. Current Medications: Active Medications Generic Name Dose Route Start Last Admin Trade Name Freq PRN Reason Stop Dose Admin Acetaminophen 650 mg 07/12/19 17:53 Tylenol - PO Q4H PRN FEVER Al Hydroxide/Mg Hydroxide 30 ml 07/12/19 17:53 Mylanta Oral Suspension - PO Q6H PRN DYSPEPSIA Aspirin 81 mg 07/14/19 10:00 07/17/19 09:39 Ecotrin - PO 81 mg DAILY KEESHA Administration Benzocaine 1 applic 07/13/19 14:25 07/15/19 01:04 Anbesol - MM 1 applic Q6H PRN Administration FOR TOOTHACHE Buprenorphine/Naloxone 1 each 07/17/19 10:00 07/17/19 10:17 Suboxone 12 Mg-3 Mg Sl Film SL 07/24/19 09:59 1 each DAILY KEESHA Administration Clonidine 0.1 mg 07/12/19 17:54 Catapres - PO Q4H PRN ANXIETY Colloidal Oatmeal 1 applic 07/13/19 11:25 07/13/19 12:19 Aveeno Soap - TP 1 bar DAILY PRN Administration HYGEINE Eucalyptus/Menthol/Phenol/Sorbitol 1 each 07/12/19 17:53 Cepastat Lozenge - MM Q4H PRN SORE THROAT Fluocinonide 1 applic 07/17/19 10:00 07/17/19 21:05 Lidex 0.05% Solution - TP 1 applic BID KEESHA Administration Guaifenesin 10 ml 07/12/19 17:53 Robitussin - PO Q6H PRN COUGH Hydroxyzine Pamoate 50 mg 07/14/19 16:50 07/17/19 21:06 Vistaril - PO 50 mg Q6H PRN Administration ANXIETY Ibuprofen 400 mg 07/12/19 17:53 07/17/19 22:54 Motrin - PO 400 mg Q6H PRN Administration Pain Level 4-6 Lactic Acid 1 applic 07/12/19 17:54 07/14/19 09:43 Lac-Hydrin 12 TP 1 applic BID PRN Administration DRY SKIN Loperamide HCl 4 mg 07/12/19 17:53 Imodium - PO Q6H PRN DIARRHEA Magnesium Citrate 300 ml 07/12/19 17:53 Citroma - PO Q48H PRN CONSTIPATION Magnesium Hydroxide 30 ml 07/12/19 17:53 07/14/19 11:57 Milk Of Magnesia - PO 30 ml DAILY PRN Administration CONSTIPATION Melatonin 5 mg 07/12/19 22:00 07/17/19 21:06 Melatonin PO 5 mg HS PRN Administration INSOMNIA Nicotine 14 mg 07/15/19 10:00 07/17/19 09:39 Nicoderm Patch - TD Not Given DAILY KEESHA Nicotine Polacrilex 2 mg 07/15/19 08:12 07/16/19 13:50 Nicorette Gum - BUC 2 mg Q2H PRN Administration NICOTINE REPLACEMENT RX Multivit/Folic Acid/Iron 1 tab 07/13/19 10:00 07/17/19 09:39 Vitamins (Sjr) - PO 1 tab DAILY KEESHA Administration Pseudoephedrine/Triprolidine 1 combo 07/12/19 17:53 Actifed - PO TID PRN NASAL CONGESTION Quetiapine Fumarate 50 mg 07/14/19 22:00 07/17/19 21:05 Seroquel - PO 50 mg HS KEESHA Administration Selenium Sulfide 1 applic 07/13/19 11:15 07/17/19 10:49 Selsun 2.5% Lotion - TP 07/20/19 11:09 1 applic DAILY KEESHA Administration Sertraline HCl 50 mg 07/15/19 10:00 07/17/19 09:39 Zoloft - PO 50 mg DAILY KEESHA Administration Thiamine HCl 100 mg 07/12/19 22:00 07/17/19 21:03 Vitamin B1 - PO 100 mg HS KEESHA Administration Triamcinolone Acetonide 1 applic 07/17/19 22:00 07/17/19 21:03 Aristocort 0.1% Ointment - TP 1 applic BID KEESHA Administration Medication(s) Change(s): Yes. Lab tests reviewed: Yes Provider note:: Patient reports worsening anxiety and difficulty sleeping. Medications reviewed. Patient is prescribed vistaril 50mg q4h + Clonidine 0.1mg q4h for anxiety and seroquel 50mg HS for insomnia. Patient has yet to accept clonidine 0.1mg. Patient encouraged to accept clonidine as it is ordered for anxiety. Will d/c seroquel 50mg and will order seroquel 100mg HS for insomnia. Patient educated on the importance of utilizing her coping skills to help manage her anxiety. Patient satisfied and receptive to feedback. Total face to face time:: 25 Mental Status Exam - Mental Status Exam Alert and Oriented to: Time, Place, Person Cognitive Function: Good Patient Appearance: Well Groomed Mood: Anxious Affect: Mood Congruent Patient Behavior: Cooperative Speech Pattern: Appropriate Voice Loudness: Normal Thought Process: Goal Oriented Thought Disorder: Not Present Hallucinations: Denies Suicidal Ideation: Denies Homicidal Ideation: Denies Insight/Judgement: Poor Sleep: Poorly Appetite: Fair Muscle strength/Tone: Normal Gait/Station: Normal Psychiatric Treatment Plan - Problem List (1) Substance-induced sleep disorder Current Visit: Yes (2) Alcohol use disorder Current Visit: Yes (3) Nicotine dependence Current Visit: Yes Qualifiers: Nicotine product type: cigarettes Substance use status: in withdrawal Qualified Code(s): F17.213 - Nicotine dependence, cigarettes, with withdrawal (4) Opioid use disorder Current Visit: Yes (5) Cannabis dependence Current Visit: Yes (6) Cocaine use disorder Current Visit: Yes (7) History of depression Current Visit: Yes (8) Substance induced mood disorder Current Visit: Yes (9) Anxiety disorder Current Visit: Yes
[2019-07-18] MEDS: TRIAMCINOLONE ACET 0.1% OINT 15 GM TUBE TP SCH ×2 (10:15→21:32)
[2019-07-18] MEDS: FLUOCINONIDE 0.05% TOPICAL SOLUTION (60 ML BOTTLE) TP SCH ×2 (10:15→21:32)
[2019-07-18] MEDS: cloNIDine HCL 0.1 MG TABLET PO PRN ×2 (13:15→21:56)
[2019-07-18] MEDS: NICOTINE POLACRILEX 2 MG GUM BUC PRN (15:01)
[2019-07-18] MEDS: THIAMINE HCL 100 MG TABLET (FP) PO SCH (21:31)
[2019-07-18] MEDS: QUEtiapine FUMARATE 100 MG TABLET (FP) PO SCH (21:32)
[2019-07-19] MEDS: hydrOXYzine PAMOATE 50 MG CAPSULE (FP) PO PRN ×2 (06:18→18:05)
[2019-07-19] MEDS: PRENATAL VITAMINS W/ FOLIC ACID TABLET (FP) PO SCH (10:22)
[2019-07-19] MEDS: ASPIRIN COATED 81 MG TABLET.EC PO SCH (10:22)
[2019-07-19] MEDS: SERTRALINE HCL 50 MG TABLET (FP) PO SCH (10:22)
[2019-07-19] MEDS: BUPRENORPHINE HCL/NALOXONE 12 MG-3 MG SL FILM PACKET SL SCH (10:22)
[2019-07-19] MEDS: SELENIUM SULFIDE 2.5% LOTION 4 OZ. TP SCH (10:23)
[2019-07-19] MEDS: NICOTINE 14 MG/24 HOURS TOPICAL PATCH TD SCH (10:23)
[2019-07-19] MEDS ORDERED: PT OWN MED DRAWER 7, Y5N ONE (10:26)
[2019-07-19] MEDS: FLUOCINONIDE 0.05% TOPICAL SOLUTION (60 ML BOTTLE) TP SCH (10:27)
[2019-07-19] MEDS: TRIAMCINOLONE ACET 0.1% OINT 15 GM TUBE TP SCH (10:27)
[2019-07-19] MEDS: cloNIDine HCL 0.1 MG TABLET PO PRN (12:49)
[2019-07-19] MEDS: FLUOCINONIDE 0.05% CREAM (15 GM TUBE) TP SCH ×2 (18:04→21:19)
[2019-07-19] MEDS: NICOTINE POLACRILEX 2 MG GUM BUC PRN (18:05)
[2019-07-19] MEDS: QUEtiapine FUMARATE 100 MG TABLET (FP) PO SCH (21:19)
[2019-07-19] MEDS: THIAMINE HCL 100 MG TABLET (FP) PO SCH (21:19)
--- NOTE | 2019-07-20 10:05 | PN ---
[facility] Progress Note (SOAP) Subjective: Rash on body Objective: General: No apparent distress Lungs: clear Heart: s1 s2 audible abd: soft, non-tender, non-distended, +BS Skin: small discreet raised, red, scaly lesions scattered over trunk and extremities. 07/20/19 10:02 Assessment: Gtt psoriasis 07/20/19 10:05 Plan: triamcinolone ordered for entire body, (80 grams).
[2019-07-20] MEDS: SERTRALINE HCL 50 MG TABLET (FP) PO SCH (10:27)
[2019-07-20] MEDS: BUPRENORPHINE HCL/NALOXONE 12 MG-3 MG SL FILM PACKET SL SCH (10:27)
[2019-07-20] MEDS: ASPIRIN COATED 81 MG TABLET.EC PO SCH (10:27)
[2019-07-20] MEDS: PRENATAL VITAMINS W/ FOLIC ACID TABLET (FP) PO SCH (10:27)
[2019-07-20] MEDS: NICOTINE 14 MG/24 HOURS TOPICAL PATCH TD SCH (10:27)
[2019-07-20] MEDS: SELENIUM SULFIDE 2.5% LOTION 4 OZ. TP SCH (10:28)
[2019-07-20] MEDS: TRIAMCINOLONE ACET 0.1% OINT 15 GM TUBE TP SCH (10:29)
[2019-07-20] MEDS: TRIAMCINOLONE ACET 0.1% CREAM 80 GM TUBE TP SCH ×4 (10:29→21:37)
[2019-07-20] MEDS: NICOTINE POLACRILEX 2 MG GUM BUC PRN (10:30)
[2019-07-20] MEDS: hydrOXYzine PAMOATE 50 MG CAPSULE (FP) PO PRN (10:30)
[2019-07-20] MEDS: cloNIDine HCL 0.1 MG TABLET PO PRN (21:37)
[2019-07-20] MEDS: QUEtiapine FUMARATE 100 MG TABLET (FP) PO SCH (21:37)
[2019-07-20] MEDS: THIAMINE HCL 100 MG TABLET (FP) PO SCH (21:37)
[2019-07-21] MEDS: hydrOXYzine PAMOATE 50 MG CAPSULE (FP) PO PRN (06:26)
[2019-07-21] MEDS ORDERED: PT OWN MED DRAWER 7, Y5N ONE ×4 (06:27→19:18)
[2019-07-21] MEDS: AMMONIUM LACTATE 12% LOTION 225 GM BOTTLE TP PRN (06:27)
[2019-07-21] MEDS: BUPRENORPHINE HCL/NALOXONE 12 MG-3 MG SL FILM PACKET SL SCH (09:51)
[2019-07-21] MEDS: cloNIDine HCL 0.1 MG TABLET PO PRN ×2 (09:51→21:24)
[2019-07-21] MEDS: PRENATAL VITAMINS W/ FOLIC ACID TABLET (FP) PO SCH (09:51)
[2019-07-21] MEDS: ASPIRIN COATED 81 MG TABLET.EC PO SCH (09:51)
[2019-07-21] MEDS: SERTRALINE HCL 50 MG TABLET (FP) PO SCH (09:51)
[2019-07-21] MEDS: NICOTINE 14 MG/24 HOURS TOPICAL PATCH TD SCH (10:40)
[2019-07-21] MEDS: TRIAMCINOLONE ACET 0.1% CREAM 80 GM TUBE TP SCH ×4 (10:41→21:50)
[2019-07-21] MEDS: NICOTINE POLACRILEX 2 MG GUM BUC PRN (14:55)
[2019-07-21] MEDS: THIAMINE HCL 100 MG TABLET (FP) PO SCH (21:24)
[2019-07-21] MEDS: QUEtiapine FUMARATE 100 MG TABLET (FP) PO SCH (21:24)
[2019-07-22] MEDS: SERTRALINE HCL 50 MG TABLET (FP) PO SCH (10:06)
[2019-07-22] MEDS: PRENATAL VITAMINS W/ FOLIC ACID TABLET (FP) PO SCH (10:06)
[2019-07-22] MEDS: TRIAMCINOLONE ACET 0.1% CREAM 80 GM TUBE TP SCH ×4 (10:06→21:21)
[2019-07-22] MEDS: ASPIRIN COATED 81 MG TABLET.EC PO SCH (10:06)
[2019-07-22] MEDS: NICOTINE 14 MG/24 HOURS TOPICAL PATCH TD SCH (10:07)
[2019-07-22] MEDS: BUPRENORPHINE HCL/NALOXONE 12 MG-3 MG SL FILM PACKET SL SCH (10:07)
[2019-07-22] MEDS: hydrOXYzine PAMOATE 50 MG CAPSULE (FP) PO PRN (10:08)
--- NOTE | 2019-07-22 12:36 | PN ---
[facility] Progress Note Note: psoriasis body and scalp,on lidex cream,selsun lotion for scalp
[2019-07-22] MEDS: SELENIUM SULFIDE 2.5% LOTION 4 OZ. TP SCH (12:45)
[2019-07-22] MEDS: THIAMINE HCL 100 MG TABLET (FP) PO SCH (21:20)
[2019-07-22] MEDS: FLUOCINONIDE 0.05% CREAM (15 GM TUBE) TP SCH (21:20)
[2019-07-22] MEDS: QUEtiapine FUMARATE 100 MG TABLET (FP) PO SCH (21:21)
[2019-07-22] MEDS: MELATONIN 5 MG TABLETS PO PRN (21:21)
[2019-07-22] MEDS: cloNIDine HCL 0.1 MG TABLET PO PRN (21:21)
[2019-07-23] MEDS ORDERED: PT OWN MED DRAWER 7, Y5N ONE ×2 (08:31→10:29)
[2019-07-23] MEDS: ASPIRIN COATED 81 MG TABLET.EC PO SCH (10:03)
[2019-07-23] MEDS: hydrOXYzine PAMOATE 50 MG CAPSULE (FP) PO PRN (10:03)
[2019-07-23] MEDS: SERTRALINE HCL 50 MG TABLET (FP) PO SCH (10:03)
[2019-07-23] MEDS: PRENATAL VITAMINS W/ FOLIC ACID TABLET (FP) PO SCH (10:03)
[2019-07-23] MEDS: BUPRENORPHINE HCL/NALOXONE 12 MG-3 MG SL FILM PACKET SL SCH (10:03)
[2019-07-23] MEDS: SELENIUM SULFIDE 2.5% LOTION 4 OZ. TP SCH (10:04)
[2019-07-23] MEDS: AMMONIUM LACTATE 12% LOTION 225 GM BOTTLE TP PRN (10:04)
[2019-07-23] MEDS: TRIAMCINOLONE ACET 0.1% CREAM 80 GM TUBE TP SCH ×4 (10:04→21:56)
[2019-07-23] MEDS: NICOTINE 14 MG/24 HOURS TOPICAL PATCH TD SCH (10:07)
[2019-07-23] MEDS: FLUOCINONIDE 0.05% CREAM (15 GM TUBE) TP SCH ×2 (10:25→21:56)
[2019-07-23] MEDS: COLLOIDAL OATMEAL 1 BAR EACH TP PRN (10:57)
[2019-07-23] MEDS: cloNIDine HCL 0.1 MG TABLET PO PRN (21:25)
[2019-07-23] MEDS: THIAMINE HCL 100 MG TABLET (FP) PO SCH (21:25)
[2019-07-23] MEDS: QUEtiapine FUMARATE 100 MG TABLET (FP) PO SCH (21:25)
[2019-07-23] MEDS: MELATONIN 5 MG TABLETS PO PRN (21:26)
[2019-07-24] MEDS ORDERED: PT OWN MED DRAWER 7, Y5N ONE ×2 (08:29→14:11)
[2019-07-24] MEDS: AMMONIUM LACTATE 12% LOTION 225 GM BOTTLE TP PRN (09:20)
[2019-07-24] MEDS: ASPIRIN COATED 81 MG TABLET.EC PO SCH (09:20)
[2019-07-24] MEDS: SELENIUM SULFIDE 2.5% LOTION 4 OZ. TP SCH (09:21)
[2019-07-24] MEDS: SERTRALINE HCL 50 MG TABLET (FP) PO SCH (09:21)
[2019-07-24] MEDS: PRENATAL VITAMINS W/ FOLIC ACID TABLET (FP) PO SCH (09:21)
[2019-07-24] MEDS: NICOTINE 14 MG/24 HOURS TOPICAL PATCH TD SCH (09:22)
[2019-07-24] MEDS: BUPRENORPHINE HCL/NALOXONE 12 MG-3 MG SL FILM PACKET SL SCH (09:22)
[2019-07-24] MEDS: TRIAMCINOLONE ACET 0.1% CREAM 80 GM TUBE TP SCH ×4 (09:23→21:54)
[2019-07-24] MEDS: NICOTINE POLACRILEX 2 MG GUM BUC PRN (09:23)
[2019-07-24] MEDS: FLUOCINONIDE 0.05% CREAM (15 GM TUBE) TP SCH (10:34)
[2019-07-24] MEDS: THIAMINE HCL 100 MG TABLET (FP) PO SCH (21:08)
[2019-07-24] MEDS: QUEtiapine FUMARATE 100 MG TABLET (FP) PO SCH (21:08)
[2019-07-24] MEDS: FLUOCINONIDE 0.05% CREAM (60 GM TUBE) TP SCH (21:08)
[2019-07-24] MEDS: cloNIDine HCL 0.1 MG TABLET PO PRN (21:09)
[2019-07-25] MEDS ORDERED: PT OWN MED DRAWER 7, Y5N ONE ×2 (08:42→13:29)
[2019-07-25] MEDS: SERTRALINE HCL 50 MG TABLET (FP) PO SCH (09:54)
[2019-07-25] MEDS: PRENATAL VITAMINS W/ FOLIC ACID TABLET (FP) PO SCH (09:54)
[2019-07-25] MEDS: ASPIRIN COATED 81 MG TABLET.EC PO SCH (09:54)
[2019-07-25] MEDS: FLUOCINONIDE 0.05% CREAM (60 GM TUBE) TP SCH ×2 (09:57→21:09)
[2019-07-25] MEDS: NICOTINE 14 MG/24 HOURS TOPICAL PATCH TD SCH (09:57)
[2019-07-25] MEDS: BUPRENORPHINE HCL/NALOXONE 12 MG-3 MG SL FILM PACKET SL SCH (09:57)
[2019-07-25] MEDS: TRIAMCINOLONE ACET 0.1% CREAM 80 GM TUBE TP SCH ×4 (09:57→21:10)
[2019-07-25] MEDS: SELENIUM SULFIDE 2.5% LOTION 4 OZ. TP SCH (09:57)
[2019-07-25] MEDS: hydrOXYzine PAMOATE 50 MG CAPSULE (FP) PO PRN (09:58)
[2019-07-25] MEDS: cloNIDine HCL 0.1 MG TABLET PO PRN ×2 (13:23→21:09)
[2019-07-25] MEDS: FLUOCINONIDE 0.05% CREAM (15 GM TUBE) TP SCH ×2 (17:18→21:09)
[2019-07-25] MEDS: QUEtiapine FUMARATE 100 MG TABLET (FP) PO SCH (21:09)
[2019-07-25] MEDS: THIAMINE HCL 100 MG TABLET (FP) PO SCH (21:09)
[2019-07-26] MEDS: SERTRALINE HCL 50 MG TABLET (FP) PO SCH (10:07)
[2019-07-26] MEDS: BUPRENORPHINE HCL/NALOXONE 12 MG-3 MG SL FILM PACKET SL SCH (10:07)
[2019-07-26] MEDS: PRENATAL VITAMINS W/ FOLIC ACID TABLET (FP) PO SCH (10:07)
[2019-07-26] MEDS: ASPIRIN COATED 81 MG TABLET.EC PO SCH (10:07)
[2019-07-26] MEDS: NICOTINE 14 MG/24 HOURS TOPICAL PATCH TD SCH (10:08)
[2019-07-26] MEDS: TRIAMCINOLONE ACET 0.1% CREAM 80 GM TUBE TP SCH ×4 (10:08→21:44)
[2019-07-26] MEDS: FLUOCINONIDE 0.05% CREAM (15 GM TUBE) TP SCH ×4 (10:08→21:44)
[2019-07-26] MEDS: SELENIUM SULFIDE 2.5% LOTION 4 OZ. TP SCH (10:08)
[2019-07-26] MEDS: FLUOCINONIDE 0.05% CREAM (60 GM TUBE) TP SCH ×2 (10:08→21:45)
[2019-07-26] MEDS: hydrOXYzine PAMOATE 50 MG CAPSULE (FP) PO PRN (10:10)
[2019-07-26] MEDS ORDERED: PT OWN MED DRAWER 7, Y5N ONE ×3 (10:48→17:28)
[2019-07-26] MEDS: cloNIDine HCL 0.1 MG TABLET PO PRN (19:10)
[2019-07-26] MEDS: VITAMINS A AND D TOPICAL OINTMENT 60 GM TUBE TP SCH (19:11)
[2019-07-26] MEDS: MELATONIN 5 MG TABLETS PO PRN (21:44)
[2019-07-26] MEDS: THIAMINE HCL 100 MG TABLET (FP) PO SCH (21:44)
[2019-07-26] MEDS: QUEtiapine FUMARATE 100 MG TABLET (FP) PO SCH (21:46)
[2019-07-27] MEDS: VITAMINS A AND D TOPICAL OINTMENT 60 GM TUBE TP SCH ×5 (00:25→23:54)
[2019-07-27] MEDS ORDERED: PT OWN MED DRAWER 7, Y5N ONE ×2 (08:13→16:01)
[2019-07-27] MEDS: FLUOCINONIDE 0.05% CREAM (15 GM TUBE) TP SCH ×4 (09:15→21:50)
[2019-07-27] MEDS: ASPIRIN COATED 81 MG TABLET.EC PO SCH (09:15)
[2019-07-27] MEDS: SELENIUM SULFIDE 2.5% LOTION 4 OZ. TP SCH (09:16)
[2019-07-27] MEDS: PRENATAL VITAMINS W/ FOLIC ACID TABLET (FP) PO SCH (09:16)
[2019-07-27] MEDS: FLUOCINONIDE 0.05% CREAM (60 GM TUBE) TP SCH ×2 (09:16→21:50)
[2019-07-27] MEDS: NICOTINE 14 MG/24 HOURS TOPICAL PATCH TD SCH (09:16)
[2019-07-27] MEDS: SERTRALINE HCL 50 MG TABLET (FP) PO SCH (09:17)
[2019-07-27] MEDS: BUPRENORPHINE HCL/NALOXONE 12 MG-3 MG SL FILM PACKET SL SCH (09:17)
[2019-07-27] MEDS: TRIAMCINOLONE ACET 0.1% CREAM 80 GM TUBE TP SCH ×4 (09:17→21:50)
[2019-07-27] MEDS: NICOTINE POLACRILEX 2 MG GUM BUC PRN (09:18)
[2019-07-27] MEDS: hydrOXYzine PAMOATE 50 MG CAPSULE (FP) PO PRN ×2 (09:18→21:44)
[2019-07-27] MEDS: cloNIDine HCL 0.1 MG TABLET PO PRN (13:52)
[2019-07-27] MEDS: COLLOIDAL OATMEAL 1 BAR EACH TP PRN (16:49)
[2019-07-27] MEDS: QUEtiapine FUMARATE 100 MG TABLET (FP) PO SCH (21:43)
[2019-07-27] MEDS: THIAMINE HCL 100 MG TABLET (FP) PO SCH (21:43)
[2019-07-27] MEDS: MELATONIN 5 MG TABLETS PO PRN (21:44)
[2019-07-28] MEDS ORDERED: PT OWN MED DRAWER 7, Y5N ONE ×6 (05:58→23:53)
[2019-07-28] MEDS: VITAMINS A AND D TOPICAL OINTMENT 60 GM TUBE TP SCH ×3 (07:27→18:15)
[2019-07-28] MEDS: ASPIRIN COATED 81 MG TABLET.EC PO SCH (09:32)
[2019-07-28] MEDS: PRENATAL VITAMINS W/ FOLIC ACID TABLET (FP) PO SCH (09:32)
[2019-07-28] MEDS: SERTRALINE HCL 50 MG TABLET (FP) PO SCH (09:32)
[2019-07-28] MEDS: SELENIUM SULFIDE 2.5% LOTION 4 OZ. TP SCH (09:32)
[2019-07-28] MEDS: hydrOXYzine PAMOATE 50 MG CAPSULE (FP) PO PRN (09:34)
[2019-07-28] MEDS: TRIAMCINOLONE ACET 0.1% CREAM 80 GM TUBE TP SCH ×4 (09:34→21:20)
[2019-07-28] MEDS: NICOTINE POLACRILEX 2 MG GUM BUC PRN (09:35)
[2019-07-28] MEDS: BUPRENORPHINE HCL/NALOXONE 12 MG-3 MG SL FILM PACKET SL SCH (09:36)
[2019-07-28] MEDS: FLUOCINONIDE 0.05% CREAM (15 GM TUBE) TP SCH ×2 (09:37→16:00)
[2019-07-28] MEDS: NICOTINE 14 MG/24 HOURS TOPICAL PATCH TD SCH (09:37)
[2019-07-28] MEDS: FLUOCINONIDE 0.05% CREAM (60 GM TUBE) TP SCH ×2 (10:17→21:20)
[2019-07-28] MEDS: cloNIDine HCL 0.1 MG TABLET PO PRN ×2 (11:13→21:10)
[2019-07-28] MEDS: AMMONIUM LACTATE 12% LOTION 225 GM BOTTLE TP PRN ×2 (14:21→18:38)
[2019-07-28] MEDS: MELATONIN 5 MG TABLETS PO PRN (21:07)
[2019-07-28] MEDS: QUEtiapine FUMARATE 100 MG TABLET (FP) PO SCH (21:07)
[2019-07-28] MEDS: THIAMINE HCL 100 MG TABLET (FP) PO SCH (21:07)
[2019-07-29] MEDS: VITAMINS A AND D TOPICAL OINTMENT 60 GM TUBE TP SCH ×5 (00:52→23:17)
[2019-07-29] MEDS ORDERED: PT OWN MED DRAWER 7, Y5N ONE ×2 (08:32→12:21)
[2019-07-29] MEDS: PRENATAL VITAMINS W/ FOLIC ACID TABLET (FP) PO SCH (09:59)
[2019-07-29] MEDS: ASPIRIN COATED 81 MG TABLET.EC PO SCH (09:59)
[2019-07-29] MEDS: SERTRALINE HCL 50 MG TABLET (FP) PO SCH (09:59)
[2019-07-29] MEDS: BUPRENORPHINE HCL/NALOXONE 12 MG-3 MG SL FILM PACKET SL SCH (10:00)
[2019-07-29] MEDS: cloNIDine HCL 0.1 MG TABLET PO PRN ×2 (10:00→21:35)
[2019-07-29] MEDS: NICOTINE 14 MG/24 HOURS TOPICAL PATCH TD SCH (10:00)
[2019-07-29] MEDS: FLUOCINONIDE 0.05% CREAM (60 GM TUBE) TP SCH ×2 (10:01→21:45)
[2019-07-29] MEDS: SELENIUM SULFIDE 2.5% LOTION 4 OZ. TP SCH (10:01)
[2019-07-29] MEDS: TRIAMCINOLONE ACET 0.1% CREAM 80 GM TUBE TP SCH ×4 (10:04→21:45)
[2019-07-29] MEDS: NICOTINE POLACRILEX 2 MG GUM BUC PRN (10:05)
[2019-07-29] MEDS: IBUPROFEN 400 MG TABLET (FP) PO PRN (15:08)
[2019-07-29] MEDS: THIAMINE HCL 100 MG TABLET (FP) PO SCH (21:34)
[2019-07-29] MEDS: MELATONIN 5 MG TABLETS PO PRN (21:34)
[2019-07-29] MEDS: QUEtiapine FUMARATE 100 MG TABLET (FP) PO SCH (21:34)
[2019-07-30] MEDS: VITAMINS A AND D TOPICAL OINTMENT 60 GM TUBE TP SCH ×3 (06:23→17:57)
[2019-07-30] MEDS ORDERED: PT OWN MED DRAWER 7, Y5N ONE ×4 (09:27→23:07)
[2019-07-30] MEDS: PRENATAL VITAMINS W/ FOLIC ACID TABLET (FP) PO SCH (09:48)
[2019-07-30] MEDS: BUPRENORPHINE HCL/NALOXONE 12 MG-3 MG SL FILM PACKET SL SCH (09:48)
[2019-07-30] MEDS: ASPIRIN COATED 81 MG TABLET.EC PO SCH (09:49)
[2019-07-30] MEDS: cloNIDine HCL 0.1 MG TABLET PO PRN (09:50)
[2019-07-30] MEDS: TRIAMCINOLONE ACET 0.1% CREAM 80 GM TUBE TP SCH ×4 (09:51→21:24)
[2019-07-30] MEDS: NICOTINE 14 MG/24 HOURS TOPICAL PATCH TD SCH (09:52)
[2019-07-30] MEDS: FLUOCINONIDE 0.05% CREAM (60 GM TUBE) TP SCH ×2 (09:52→21:24)
[2019-07-30] MEDS: SERTRALINE HCL 50 MG TABLET (FP) PO SCH (10:50)
[2019-07-30] MEDS: MELATONIN 5 MG TABLETS PO PRN (21:23)
[2019-07-30] MEDS: QUEtiapine FUMARATE 100 MG TABLET (FP) PO SCH (21:23)
[2019-07-30] MEDS: hydrOXYzine PAMOATE 50 MG CAPSULE (FP) PO PRN (21:23)
[2019-07-30] MEDS: THIAMINE HCL 100 MG TABLET (FP) PO SCH (21:23)
[2019-07-31] MEDS: VITAMINS A AND D TOPICAL OINTMENT 60 GM TUBE TP SCH ×4 (00:18→17:06)
[2019-07-31] MEDS: cloNIDine HCL 0.1 MG TABLET PO PRN ×2 (06:23→22:15)
[2019-07-31] MEDS ORDERED: PT OWN MED DRAWER 7, Y5N ONE ×3 (08:14→16:55)
[2019-07-31] MEDS: ASPIRIN COATED 81 MG TABLET.EC PO SCH (09:41)
[2019-07-31] MEDS: FLUOCINONIDE 0.05% CREAM (60 GM TUBE) TP SCH ×2 (09:42→22:16)
[2019-07-31] MEDS: NICOTINE 14 MG/24 HOURS TOPICAL PATCH TD SCH (09:42)
[2019-07-31] MEDS: PRENATAL VITAMINS W/ FOLIC ACID TABLET (FP) PO SCH (09:42)
[2019-07-31] MEDS: SERTRALINE HCL 50 MG TABLET (FP) PO SCH (09:42)
[2019-07-31] MEDS: TRIAMCINOLONE ACET 0.1% CREAM 80 GM TUBE TP SCH ×4 (09:42→22:19)
[2019-07-31] MEDS: hydrOXYzine PAMOATE 50 MG CAPSULE (FP) PO PRN ×3 (09:44→22:15)
[2019-07-31] MEDS: NICOTINE POLACRILEX 2 MG GUM BUC PRN (09:45)
[2019-07-31] MEDS: IBUPROFEN 400 MG TABLET (FP) PO PRN (09:47)
[2019-07-31] MEDS ORDERED: BUPRENORPHINE HCL/NALOXONE 12 MG-3 MG SL FILM PACKET SL ONE (10:00)
[2019-07-31] MEDS: SELENIUM SULFIDE 2.5% LOTION 4 OZ. TP SCH (13:33)
[2019-07-31] MEDS: COLLOIDAL OATMEAL 1 BAR EACH TP PRN (17:04)
[2019-07-31] MEDS: THIAMINE HCL 100 MG TABLET (FP) PO SCH (22:15)
[2019-07-31] MEDS: QUEtiapine FUMARATE 100 MG TABLET (FP) PO SCH (22:15)
[2019-07-31] MEDS: MELATONIN 5 MG TABLETS PO PRN (22:16)
[2019-07-31] MEDS: AMMONIUM LACTATE 12% LOTION 225 GM BOTTLE TP PRN (22:17)
[2019-08-01] MEDS: VITAMINS A AND D TOPICAL OINTMENT 60 GM TUBE TP SCH ×5 (00:15→23:59)
[2019-08-01] MEDS: cloNIDine HCL 0.1 MG TABLET PO PRN (06:42)
[2019-08-01] MEDS: PRENATAL VITAMINS W/ FOLIC ACID TABLET (FP) PO SCH (09:55)
[2019-08-01] MEDS: NICOTINE 14 MG/24 HOURS TOPICAL PATCH TD SCH (09:55)
[2019-08-01] MEDS: SERTRALINE HCL 50 MG TABLET (FP) PO SCH (09:55)
[2019-08-01] MEDS: ASPIRIN COATED 81 MG TABLET.EC PO SCH (09:55)
[2019-08-01] MEDS: BUPRENORPHINE HCL/NALOXONE 12 MG-3 MG SL FILM PACKET SL SCH (09:56)
[2019-08-01] MEDS: hydrOXYzine PAMOATE 50 MG CAPSULE (FP) PO PRN ×2 (09:57→21:35)
[2019-08-01] MEDS ORDERED: PT OWN MED DRAWER 7, Y5N ONE ×2 (09:59→14:13)
[2019-08-01] MEDS: FLUOCINONIDE 0.05% CREAM (60 GM TUBE) TP SCH ×2 (09:59→21:35)
[2019-08-01] MEDS: TRIAMCINOLONE ACET 0.1% CREAM 80 GM TUBE TP SCH ×4 (10:00→21:36)
[2019-08-01] MEDS: SELENIUM SULFIDE 2.5% LOTION 4 OZ. TP SCH (10:00)
[2019-08-01] MEDS: THIAMINE HCL 100 MG TABLET (FP) PO SCH (21:35)
[2019-08-01] MEDS: MELATONIN 5 MG TABLETS PO PRN (21:35)
[2019-08-01] MEDS: QUEtiapine FUMARATE 100 MG TABLET (FP) PO SCH (21:35)
[2019-08-02] MEDS: VITAMINS A AND D TOPICAL OINTMENT 60 GM TUBE TP SCH ×3 (06:44→19:16)
[2019-08-02] MEDS ORDERED: PT OWN MED DRAWER 7, Y5N ONE (08:33)
[2019-08-02] MEDS: TRIAMCINOLONE ACET 0.1% CREAM 80 GM TUBE TP SCH ×4 (09:28→21:43)
[2019-08-02] MEDS: ASPIRIN COATED 81 MG TABLET.EC PO SCH (09:28)
[2019-08-02] MEDS: BUPRENORPHINE HCL/NALOXONE 12 MG-3 MG SL FILM PACKET SL SCH (09:28)
[2019-08-02] MEDS: PRENATAL VITAMINS W/ FOLIC ACID TABLET (FP) PO SCH (09:29)
[2019-08-02] MEDS: FLUOCINONIDE 0.05% CREAM (60 GM TUBE) TP SCH ×2 (09:29→21:43)
[2019-08-02] MEDS: NICOTINE 14 MG/24 HOURS TOPICAL PATCH TD SCH (09:29)
[2019-08-02] MEDS: SELENIUM SULFIDE 2.5% LOTION 4 OZ. TP SCH (09:29)
[2019-08-02] MEDS: SERTRALINE HCL 50 MG TABLET (FP) PO SCH (09:30)
[2019-08-02] MEDS: NICOTINE POLACRILEX 2 MG GUM BUC PRN (09:30)
[2019-08-02] MEDS: hydrOXYzine PAMOATE 50 MG CAPSULE (FP) PO PRN ×3 (09:31→21:40)
--- NOTE | 2019-08-02 10:31 | PN ---
[facility] Progress Note Note: Patient reports sleeping poorly despite taking Seroquel 100 mg/hs. Requests that Seroquel dosage be increased. Naga increase Seroquel to 150 mg/hs
[2019-08-02] MEDS: QUEtiapine FUMARATE 100 MG TABLET (FP) PO SCH (21:40)
[2019-08-02] MEDS: cloNIDine HCL 0.1 MG TABLET PO PRN (21:40)
[2019-08-02] MEDS: MELATONIN 5 MG TABLETS PO PRN (21:40)
[2019-08-02] MEDS: IBUPROFEN 400 MG TABLET (FP) PO PRN (21:41)
[2019-08-02] MEDS: THIAMINE HCL 100 MG TABLET (FP) PO SCH (21:42)
[2019-08-02] MEDS: QUEtiapine FUMARATE 50 MG TABLET PO SCH (21:43)
[2019-08-03] MEDS: VITAMINS A AND D TOPICAL OINTMENT 60 GM TUBE TP SCH ×4 (00:28→18:43)
[2019-08-03] MEDS ORDERED: PT OWN MED DRAWER 7, Y5N ONE ×2 (08:45→11:38)
[2019-08-03] MEDS: COLLOIDAL OATMEAL 1 BAR EACH TP PRN (08:52)
[2019-08-03] MEDS: BUPRENORPHINE HCL/NALOXONE 12 MG-3 MG SL FILM PACKET SL SCH (09:32)
[2019-08-03] MEDS: SERTRALINE HCL 50 MG TABLET (FP) PO SCH (09:33)
[2019-08-03] MEDS: NICOTINE 14 MG/24 HOURS TOPICAL PATCH TD SCH (09:33)
[2019-08-03] MEDS: hydrOXYzine PAMOATE 50 MG CAPSULE (FP) PO PRN (09:33)
[2019-08-03] MEDS: PRENATAL VITAMINS W/ FOLIC ACID TABLET (FP) PO SCH (09:33)
[2019-08-03] MEDS: ASPIRIN COATED 81 MG TABLET.EC PO SCH (09:33)
[2019-08-03] MEDS: NICOTINE POLACRILEX 2 MG GUM BUC PRN (09:33)
[2019-08-03] MEDS: SELENIUM SULFIDE 2.5% LOTION 4 OZ. TP SCH (09:35)
[2019-08-03] MEDS: FLUOCINONIDE 0.05% CREAM (60 GM TUBE) TP SCH ×2 (09:37→21:37)
[2019-08-03] MEDS: TRIAMCINOLONE ACET 0.1% CREAM 80 GM TUBE TP SCH ×4 (09:37→21:38)
[2019-08-03] MEDS: cloNIDine HCL 0.1 MG TABLET PO PRN (11:36)
--- NOTE | 2019-08-03 12:18 | DS ---
[facility] Rehab Discharge Summary - [facility] Rehab Discharge Summary Admission Date: 07/12/19 Discharge Date: 08/04/19 - History Present History: Alcohol dependence, Cannabis dependence, Opioid dependence Additional Comments: Pt is a 33 y/o female admitted to rehab for AGGIE scheduled for discharge on 08/04 after completion of treatment. Pertinent Past History: Psoriasis Depression - Discharge Physical Exam Vital Signs: Vital Signs Temperature 98.3 F 08/03/19 06:41 Pulse Rate 69 08/03/19 11:38 Respiratory Rate 16 08/03/19 06:41 Blood Pressure 113/67 08/03/19 11:38 O2 Sat by Pulse Oximetry (%) General:Alert o x 3, Nad oob ambulating with steady gait Heent:Normocephalic,eomi,alfred,hearing normal Cardiac:s1 s2,rrr Lungs:cta,raya. Extremities/Skin:No edema, no cyanosis,Full ROM; red scaly lesions on lower extremities-hx psoriasis. Pertinent Admission Physical Exam Findings: Unremarkable Hx of Psoriatic lesions(on med). - Treatment Discharge Condition: Discharge condition good Hospital Course: Rehabilitated safely and responded well accepted aftercare referral - Medication Discharge Medications: Ambulatory Orders Buprenorphine HCl/Naloxone HCl [Suboxone 12 mg-3 mg Sl Film] 1 each SL DAILY 7 Days #7 packet MDD 1 08/03/19 Clobetasol Propionate [Cormax] 50 ml TP DAILY 30 Days #1 solution 08/03/19 Fluocinolone Acetonide [Sdruf-Ntdpzts-Fd] 118.28 ml TP DAILY 30 Days #1 oil Naloxone HCl [Narcan] 4 mg NS ONCE #1 spray 08/03/19 Triamcinolone 0.1% Ointment [Aristocort 0.1% Ointment -] 1 applic TP DAILY 30 Days #1 jar 08/03/19 - Medication-Assisted Treatment (MAT) Medication-Assisted Treatment (MAT): Yes Medication Prescribed: Suboxone MAT Follow-up Referral: [facility] [address] [place], [place] - Discharge Instructions Diet, activity, other medical instructions: Diet:regular Activity: oob, ad ana Other medical instructions:follow up with CD aftercare/ Suboxone MAT as recommended @ [facility]. Follow up with primary care provider at [address] [place] [address]/[address] [place], [place] for medical management withi one week after discharge. - Diagnosis (1) Alcohol use disorder Status: Chronic (2) Nicotine dependence Status: Chronic Qualifiers: Nicotine product type: cigarettes Substance use status: uncomplicated Qualified Code(s): F17.210 - Nicotine dependence, cigarettes, uncomplicated (3) Opioid use disorder Status: Acute (4) Anxiety disorder Status: Chronic (5) Cannabis dependence Status: Chronic (6) Cocaine use disorder Status: Chronic (7) History of depression Status: Chronic (8) Insomnia Status: Chronic - Follow-up Referral Minutes to complete discharge: 20 - AMA Did Patient Leave Against Medical Advice: No
[2019-08-03] MEDS: THIAMINE HCL 100 MG TABLET (FP) PO SCH (21:34)
[2019-08-03] MEDS: MELATONIN 5 MG TABLETS PO PRN (21:35)
[2019-08-03] MEDS: IBUPROFEN 400 MG TABLET (FP) PO PRN (21:36)
[2019-08-03] MEDS: QUEtiapine FUMARATE 100 MG TABLET (FP) PO SCH (21:37)
[2019-08-03] MEDS: QUEtiapine FUMARATE 50 MG TABLET PO SCH (21:38)
[2019-08-04] MEDS: VITAMINS A AND D TOPICAL OINTMENT 60 GM TUBE TP SCH ×2 (00:21→06:30)
[2019-08-04] MEDS: cloNIDine HCL 0.1 MG TABLET PO PRN (06:29)
[2019-08-04 07:24] VITALS: BP 121/78; PULSE 77; TEMP 98
[2019-08-04] MEDS ORDERED: PT OWN MED DRAWER 7, Y5N ONE (08:01)
== END 2019-08-04 08:03 | disposition home or self-care (01) | DRG 772 ==
LOC: YASAS 13:26 → Y3W 13:27 → Y3E 07-24 18:31 → Y3W 07-24 19:20 → Y3E 07-26 17:37
PROVIDERS: ADMIT Neuromusculoskeletal Medicine & OMM; ATTEND Neuromusculoskeletal Medicine & OMM
PROC: HZ42ZZZ Group Counseling for Substance Abuse Treatment, Cognitive-Behavioral (ICD-10-PCS; principal; 2019-07-12)
DX: F11.23 Opioid dependence with withdrawal (principal); F10.230 Alcohol dependence with withdrawal, uncomplicated; F14.20 Cocaine dependence, uncomplicated; F12.20 Cannabis dependence, uncomplicated; F17.210 Nicotine dependence, cigarettes, uncomplicated; F41.9 Anxiety disorder, unspecified; F19.24 Other psychoactive substance dependence with psychoactive substance-induced mood disorder; F19.282 Other psychoactive substance dependence with psychoactive substance-induced sleep disorder; G47.00 Insomnia, unspecified; L40.8 Other psoriasis
CPT/HCPCS: 90732; G0009; J0735